=== PATIENT | female | born 2000 | race Hispanic/Latino ===

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

== ENCOUNTER 2024-08-31 20:50 | Emergency (ER) | payer SELFPAY ==
[~2024-08-31] VITALS: Ht 172.7 cm; Wt 123.8 kg
[2024-08-31 21:37] LABS: ADD UA MICROSCOPIC YES; APPEARANCE,URINE CLEAR (CLEAR); BILIRUBIN,URINE NEGATIVE (NEGATIVE); COLOR,URINE YELLOW (YELLOW); GLUCOSE, URINE (UA) NEGATIVE (NEGATIVE); KETONES,URINE 5 mg/dL (NEGATIVE); LEUKOCYTE ESTERASE ,URINE NEGATIVE Leu/uL (NEGATIVE); NITRATE,URINE NEGATIVE (NEGATIVE); OCCULT BLOOD,URINE NEGATIVE (NEGATIVE); PH,URINE 5.5 (5.0-8.0); PROTEIN,URINE 20 mg/dL (NEGATIVE)
--- NOTE | 2024-08-31 21:38 | ERN ---
ED Note History of Present Illness Stated Complaint: WEAKNESS,VOMITTING,MULTIPLE COMPLAINTS Chief Complaint: Abdominal Pain Time Seen by MD: 20:58 Time Seen by Midlevel: 20:58 Dictation: 24-year-old female presents to the emergency department due to reported having epigastric pain that began yesterday. She reports having a history of H pylori and believes that this might be related to it. At this time, she rates her pain level as a 7/10. Patient states that the pain is slightly migraine to her mid back. There is no report of any fever, chills, nausea vomiting associated with this. Patient reports the discomfort as a 9 type of sensation. Upon initial evaluation, the patient presents mildly uncomfortable looking. Allergies: Coded Allergies: No Known Drug Allergies (Unverified Allergy, Unknown, 08/31/24) Emergency Care MIGRATORY WORKER: None Past Medical History Past Medical History: No Pertinent History, Other Additional Past Medical Hx: H. PYLORI Surgical History: None PSYCH History: no pertinent psych hx Social History: Lives with family LMP: Aug 30, 2024 RN Note Reviewed/Agreed w/PFSH: Yes Review of System Dictation Abdomen/GI: Epigastric pain Initial Vital Sign VS Vital Signs Date Time Temp Pulse Resp B/P (MAP) Pulse Ox O2 Delivery O2 Flow Rate FiO2 08/31/24 21:07 98.2 82 18 137/88 98 Room Air 0 09/01/24 00:05 21 Physical Exam Dictation General: awake, alert, NAD Head/Face: Normocephalic, atraumatic Eyes: PERRL, EOMI ENT: Oral mucosa moist Neck: Trachea midline, supple Cardiovascular: RRR, no edema Respiratory: Symmetrical, non-labored Abdomen: Soft, epigastric tenderness with voluntary guarding, non-distended, no guarding. Skin: Warm, dry, good turgor, no rash MS/Extremity: Pulses equal, no cyanosis, neurovascular intact, FROM Neuro: COAx4, GCS 15, steady gait, Psych: Normal behavior, mood, and affect normal Results (Laboratory/Radiology) Laboratory/Radiology Laboratory Tests Test 08/31/24 21:17 08/31/24 21:35 Urine Color YELLOW (YELLOW) Urine Appearance CLEAR (CLEAR) Urine pH 5.5 (5.0-8.0) Urine Specific [place] 1.037 (1.001-1.031) Urine Protein 20 mg/dL (NEGATIVE) H Urine Glucose (UA) NEGATIVE mg/dL (NEGATIVE) Urine Ketones 5 mg/dL (NEGATIVE) H Urine Occult Blood NEGATIVE (NEGATIVE) Urine Nitrate NEGATIVE (NEGATIVE) Urine Bilirubin NEGATIVE mg/dL (NEGATIVE) Urine Urobilinogen 2.0 mg/dL (0.2-1.0) H Urine Leukocyte Esterase NEGATIVE [place]/uL Urine RBC 2-5 /HPF (0-1) H Urine WBC 0-1 /HPF (0-1) Urine Squamous Epithelial Cells FEW /HPF (0-2) Urine Bacteria FEW /HPF (None Seen) Urine HCG, Qualitative NEGATIVE (NEGATIVE) White Blood Count 10.3 K/uL (4.8-10.8) Red Blood Count 5.17 MIL/uL (4.00-5.50) Hemoglobin 12.9 g/dL (12.0-16.0) Hematocrit 41.6 % (36-48) Mean Corpuscular Volume 80.5 fL (79-99) Mean Corpuscular Hemoglobin 25.0 pg (27.0-33.0) L Mean Corpuscular Hemoglobin Concent 31.0 g/dL (32.0-36.0) L Red Cell Distribution Width 14.1 % (11.0-15.5) Platelet Count 341 K/uL (130-400) Mean Platelet Volume 11.4 fL (7.5-10.5) H Immature Granulocyte % (Auto) 0.2 % (0-1) Neutrophils (%) (Auto) 62.0 % (40.0-77.0) Lymphocytes (%) (Auto) 31.7 % (21.0-51.0) Monocytes (%) (Auto) 5.0 % (3.0-13.0) Eosinophils (%) (Auto) 0.9 % (0.0-8.0) Basophils (%) (Auto) 0.2 % (0.0-5.0) Neutrophils # (Auto) 6.4 K/uL (1.8-7.7) Lymphocytes # (Auto) 3.3 K/uL (1.0-4.8) Monocytes # (Auto) 0.5 K/uL (0.1-1.0) Eosinophils # (Auto) 0.09 K/uL (0.00-0.70) Basophils # (Auto) 0.02 K/uL (0.00-0.20) Absolute Immature Granulocyte (auto 0.02 K/uL (0-1) Nucleated Red Blood Cells 0.0 % (0.0-0.19) Red Blood Cell Morphology See comments Sodium Level 141 mmol/L (136-145) Potassium Level 3.9 mmol/L (3.5-5.1) Chloride Level 105 mmol/L (101-111) Carbon Dioxide Level 29 mmol/L (21-32) Blood Urea Nitrogen 11 mg/dL (7-18) Creatinine 0.8 mg/dL (0.5-1.0) Glomerular Filtration Rate Calc 106 mL/min (>90) Random Glucose 96 mg/dL (70-105) Total Calcium 8.6 mg/dL (8.5-10.1) Total Bilirubin 0.3 mg/dL (0.2-1.0) Aspartate Amino Transf (AST/SGOT) 13 U/L (10-37) Alanine Aminotransferase (ALT/SGPT) 25 U/L (12-78) Alkaline Phosphatase 125 U/L (50-136) Total Protein 7.3 g/dL (6.0-8.3) Albumin 3.3 g/dL (3.5-5.0) L Amylase Level 43 U/L (25-115) Lipase 21 U/L (16-77) Labs Reviewed?: Yes ED Course ED Course Orders Procedure Category Date Status Time Vital Signs Per CPOE 08/31/24 Transmitted Routine 21:13 Saline Lock Iv CPOE 08/31/24 Transmitted 21:13 Cbc With Differential LAB 08/31/24 Complete 21:13 Comprehensive LAB 08/31/24 Complete Metabolic Panel 21:13 Lipase LAB 08/31/24 Complete 21:13 Amylase LAB 08/31/24 Complete 21:13 Urinalysis Profile LAB 08/31/24 Complete 21:13 ,Urine Test LAB 08/31/24 Complete 21:13 Ketorolac PHA 08/31/24 Complete Tromethamine 30mg/Ml 21:30 Dicyclomine Hcl PHA 08/31/24 Complete (Bentyl 20mg Inj) 21:30 Us Abdominal Ruq\Ltd US 08/31/24 Taken 21:30 Current Medications Medications (Trade) Dose Ordered Sig/Leidy Route PRN Reason Start Time Stop Time Status Last Admin Dose Admin Dicyclomine HCl (Bentyl 20mg Inj) 20 mg ONCE ONCE IM 08/31/24 21:30 08/31/24 21:33 DC 08/31/24 23:47 Ketorolac Tromethamine (toRADol) 30 mg ONCE ONCE IVP 08/31/24 21:30 08/31/24 21:33 DC 08/31/24 23:48 Vital Signs Date Time Temp Pulse Resp B/P (MAP) Pulse Ox O2 Delivery O2 Flow Rate FiO2 09/01/24 00:05 98.8 74 18 124/82 98 Room Air* 0 21 08/31/24 21:07 98.2 82 18 137/88 98 Room Air 0 Medical Decision Making MDM MDM: Differential diagnosis: Acute abdominal pain, biliary colic, cholelithiasis, acute cholecystitis. Rationale: Tests considered and ordered secondary to shared decision making include: Previous outside records reviewed: Old ER visits. Risk of complication and/or morbidity or mortality of patient management: None Medications-Per medication reconciliation Need for hospitalization: Patient does not meet criteria for hospitalization. Need for emergency major/minor surgery: No There are no social concerns with this patient. Prescription drug management Prescriptions will include symptomatic care Patient's prior external medical records from other ER visits were reviewed by me as indicated. Prior testing and results from previous visits were reviewed. Prior tests were taken into account with medical decision making and resource utilization, independent historian/historians were used to obtain complete medical history. I independently interpreted the test that were performed, results were reviewed by me and considered findings on radiology if ordered. Medical management and examination interpretation discussions were had by me with other qualified healthcare professionals as indicated for the patient's care. DX & DISP Disposition: Discharge Departure Impression: Primary Impression: Acute abdominal pain Condition: Stable Scripts Ondansetron (Ondansetron Odt) 4 Mg Tab.rapdis 8 MG PO Q8H PRN for NAUSEA/VOMITING, #7 TAB Prov: SEGUNDO VYAS 09/01/24 Referrals: LUCY YUNG (PCP) Time of Disposition: 00:15 SEGUNDO VYAS Aug 31, 2024 21:38
[2024-08-31 21:39] LABS: HCG,QUALITATIVE URINE NEGATIVE (NEGATIVE)
[2024-08-31 21:40] LABS: BACTERIA,URINE FEW /HPF (None Seen); MUCUS,URINE FEW LPF (None Seen); SQUAMOUS EPITHELIAL CELL,UR FEW /HPF (0-2); WBC,URINE 0-1 /HPF (0-1)
[2024-08-31 21:47] LABS: BASOPHILS # (AUTO) 0.02 K/uL (0.00-0.20); BASOPHILS % (AUTO) 0.2 % (0.0-5.0); EOSINOPHILS # (AUTO) 0.09 K/uL (0.00-0.70); EOSINOPHILS % (AUTO) 0.9 % (0.0-8.0); HEMATOCRIT 41.6 % (36-48); IMMATURE GRANULOCYTE ABSOLUTE 0.02 K/uL (0-1); LYMPHOCYTES # (AUTO) 3.3 K/uL (1.0-4.8); LYMPHOCYTES % (AUTO) 31.7 % (21.0-51.0); MEAN CORPUSCULAR VOLUME 80.5 fL (79-99); MONOCYTES # (AUTO) 0.5 K/uL (0.1-1.0); NEUTROPHILS # (AUTO) 6.4 K/uL (1.8-7.7); PLATELET COUNT (AUTO) 341 K/uL (130-400); RED BLOOD CELL COUNT(AUTO) 5.17 MIL/uL (4.00-5.50); RED CELL DISTRIBUTION WIDTH 14.1 % (11.0-15.5); WHITE BLOOD COUNT (AUTO) 10.3 K/uL (4.8-10.8)
[2024-08-31 21:56] LABS: CREATININE 0.8 mg/dL (0.5-1.0); POTASSIUM 3.9 mmol/L (3.5-5.1)
[2024-08-31 22:00] LABS: ALBUMIN 3.3 g/dL (3.5-5.0); BILIRUBIN,TOTAL 0.3 mg/dL (0.2-1.0); TOTAL PROTEIN, SERUM 7.3 g/dL (6.0-8.3)
[2024-08-31] MEDS: DICYCLOMINE 20MG (10MG/ML) AMP IM ONE (23:47)
[2024-08-31] MEDS: ketOROlac 30MG VIAL (30MG/ML) IVP ONE (23:48)
[2024-09-01 00:05] VITALS: BP 124/82; PULSE 74; RESP 18; TEMP 98.8; O2SAT 98
[2024-09-01] MEDS ORDERED: ONDA-243 PO (00:16)
--- NOTE | 2024-09-01 08:23 | HMCIMG ---
Exam Type: Right upper quadrant abdominal ultrasound with hepatic color-flow Doppler Clinical Information: cholecystitis Comparison: none Findings: The liver shows fatty infiltration and is otherwise unremarkable. Doppler evaluation shows patent portal and hepatic veins. The gallbladder shows no significant abnormalities. Specifically, no calculi are seen. There is no evidence of acute or chronic cholecystitis. No bile duct dilatation is noted. The gallbladder wall measures 2 mm. The common bile duct measures 2 mm. The right kidney measures 10.7 x 4.7 cm, and shows no hydronephrosis or calculi, masses or other abnormalities. The pancreas is suboptimally visualized. The spleen is unremarkable. The aorta and inferior vena cava show no significant abnormalities. IMPRESSION: FATTY LIVER INFILTRATION. OTHERWISE NORMAL RIGHT UPPER QUADRANT ABDOMINAL ULTRASOUND.
== END 2024-09-01 00:30 | disposition home or self-care (01) ==
LOC: EDH 20:50
DX: R10.13 Epigastric pain (principal)
CPT/HCPCS: 99285; 96374; 76705; 82150; 80053; 83690; 85025; 81001; 81025; 36415; 96372; J1885; J0500